=== PATIENT | female | born 1995 | race Caucasian/White ===

== ENCOUNTER 2018-03-23 14:11 | Emergency (ER) | payer OTHER ==
[2018-03-23 14:45] VITALS: BP 116/69
[2018-03-23] MEDS ORDERED: Ibuprofen TAB* 600 MG PO ONE (15:10)
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
== END 2018-03-23 16:01 | disposition home or self-care (01) ==
LOC: UCCORT 14:11
DX: S16.1XXA Strain of muscle, fascia and tendon at neck level, initial encounter (principal); V47.1XXA Car passenger injured in collision with fixed or stationary object in nontraffic accident, initial encounter; Y92.410 Unspecified street and highway as the place of occurrence of the external cause
CPT/HCPCS: 72050; 99201; A9270-GY; G0463